=== PATIENT | female | born 1975 | race Caucasian/White ===

== ENCOUNTER 2018-08-01 12:29 | Emergency (ER) | payer MEDICAID ==
[~2018-08-01] VITALS: Ht 165.1 cm; Wt 91.8 kg
[2018-08-01 12:35] VITALS: TEMP 98
[2018-08-01] MEDS ORDERED: HCTZ12.5TAB PO (12:42)
[2018-08-01] MEDS ORDERED: NORCO 325 MG-51 TAB PO (12:42)
[2018-08-01] MEDS ORDERED: BUSPAR DIVIDOSE15 MG PO (12:43)
[2018-08-01 13:25] LABS: BASO # 0.1 (0.0-0.2); BASO % 0.5 % (0.0-2.0); EOS # 0.5 (0.0-0.7); EOS % 4.4 % (0-4.0); GRAN # 8.1 (1.4-6.5); GRAN % 73.6 % (42.2-75.2); HEMATOCRIT 42.2 % (37.0-47.0); LYMPH # 1.7 (1.2-3.4); LYMPH % 15.4 % (20.0-51.0); MEAN CELL VOLUME 90 fl (80.0-100.0); MEAN CORPUSCULAR HEMOGLOBIN 32 pg (27.0-31.0); MEAN CORPUSCULAR HGB CONC 36 g/dl (33.0-37.0); MEAN PLATELET VOLUME 10.2 fl (7.4-10.4); MONO # 0.6 (0.1-0.6); MONO % 5.6 % (1.7-9.3); PLATELET COUNT 188 K/mm3 (130-400); RED BLOOD COUNT 4.69 M/mm3 (4.10-5.30); REDCELL DISTRIBUTION WIDTH-CV 12.3 % (11.5-14.5)
[2018-08-01 13:28] LABS: PROTHROMBIN TIME 11.7 SECONDS (9.7-12.8)
[2018-08-01 13:30] LABS: PARTIAL THROMBOPLASTIN TIME 36.3 SECONDS (26.0-37.0)
[2018-08-01 13:34] LABS: ALANINE AMINOTRANSFERASE 23 U/L (9-52); ALBUMIN 4.4 gm/dL (3.5-5.0); ALKALINE PHOSPHATASE 65 U/L (50-136); ANION GAP 8 mmol/L (7-16); AST,SGOT 18 U/L (15-37); BILIRUBIN,TOTAL 0.8 mg/dL (0.0-1.0); BLOOD UREA NITROGEN 7 mg/dL (7-17); CALCIUM 9.2 mg/dL (8.4-10.2); CARBON DIOXIDE 30 mmol/L (22-30); CHLORIDE 102 mmol/L (98-107); CREATININE, serum 0.76 mg/dL (0.52-1.25); GLUCOSE 94 mg/dL (74-106); POTASSIUM 3.5 mmol/L (3.4-5.0); SODIUM 139 mmol/L (137-145)
[2018-08-01 14:01] LABS: TROPONIN-I < 0.012 ng/mL (0.000-0.034)
[2018-08-01 15:39] VITALS: BP 124/70; PULSE 72
== END 2018-08-01 15:41 | disposition home or self-care (01) ==
LOC: COL.ER 12:29
PROVIDERS: Family Medicine
DX: R07.89 Other chest pain (principal); F17.210 Nicotine dependence, cigarettes, uncomplicated
CPT/HCPCS: J1885

== ENCOUNTER → 2018-10-14 | Outpatient (CLI) | payer MEDICAID ==
[~2018-10-14] MED LIST: BUSPAR DIVIDOSE15 MG PO; FASTIN30 MG PO; HCTZ12.5TAB PO; NORCO 325 MG-51 TAB PO; PROTONIX 40MG T40 MG PO; PROTONIX20 MG PO
== END ==
LOC: ZCOL.LAB 17:00
DX: R07.9 Chest pain, unspecified (principal)

== ENCOUNTER → 2018-11-04 | Outpatient (CLI) | payer MEDICAID | LOC: COL.RAD 11:03 | DX: R10.2 Pelvic and perineal pain (principal); Z90.710 Acquired absence of both cervix and uterus ==

== ENCOUNTER → 2018-11-04 | Outpatient (CLI) | payer MEDICAID ==
[2018-11-04 17:32] LABS: MUCOUS Present /lpf; PH 6 (5-8); URINE APPEARANCE Hazy; URINE BACTERIA None Seen /hpf; URINE BILIRUBIN Negative (NEGATIVE); URINE BLOOD 1+ (NEGATIVE); URINE COLOR Yellow; URINE GLUCOSE Negative (NEGATIVE); URINE KETONE Negative (NEGATIVE); URINE LEUKOCYTE ESTERASE Negative (NEGATIVE); URINE NITRATE Negative (NEGATIVE); URINE PROTEIN(semi-quant) Negative (NEGATIVE); URINE UROBILINOGEN Negative (NEGATIVE)
[2018-11-04 17:44] LABS: COLLECTION METHOD CLEAN CATCH
== END ==
LOC: ZCOL.LAB 16:27
PROVIDERS: Family Medicine
DX: R10.2 Pelvic and perineal pain (principal)

== ENCOUNTER → 2018-11-11 | Outpatient (CLI) | payer MEDICAID ==
[~2018-11-11] MED LIST changes: +CARAFATE 1GM1 G PO; +ZOLOFT 50MG50 MG PO
[2018-11-11 12:58] LABS: BASO # 0.1 (0.0-0.2); BASO % 0.6 % (0.0-2.0); EOS # 0.1 (0.0-0.7); GRAN # 7.4 (1.4-6.5); GRAN % 74.9 % (42.2-75.2); HEMATOCRIT 38.7 % (37.0-47.0); LYMPH # 1.7 (1.2-3.4); LYMPH % 17.5 % (20.0-51.0); MEAN CELL VOLUME 89 fl (80.0-100.0); MEAN CORPUSCULAR HEMOGLOBIN 32 pg (27.0-31.0); MEAN CORPUSCULAR HGB CONC 36 g/dl (33.0-37.0); MEAN PLATELET VOLUME 10.5 fl (7.4-10.4); MONO # 0.6 (0.1-0.6); MONO % 5.7 % (1.7-9.3); PLATELET COUNT 141 K/mm3 (130-400); RED BLOOD COUNT 4.36 M/mm3 (4.10-5.30); REDCELL DISTRIBUTION WIDTH-CV 12.2 % (11.5-14.5)
[2018-11-11 13:08] LABS: ALBUMIN 3.9 gm/dL (3.5-5.0); CREATININE, serum 0.92 mg/dL (0.52-1.25); TOTAL PROTEIN 6.9 gm/dL (6.4-8.2)
[2018-11-11 13:17] LABS: POTASSIUM 2.8 mmol/L (3.4-5.0)
== END ==
LOC: COL.LAB 12:24
PROVIDERS: Physician Assistant
DX: M54.9 Dorsalgia, unspecified (principal); R10.9 Unspecified abdominal pain; R07.9 Chest pain, unspecified; R41.0 Disorientation, unspecified; R05 Cough; R19.7 Diarrhea, unspecified; R12 Heartburn; R11.2 Nausea with vomiting, unspecified; R06.02 Shortness of breath; R06.2 Wheezing

== ENCOUNTER 2018-11-12 10:28 | Day surgery (SDC) | payer MEDICAID ==
[2018-11-12] VITALS (7 sets, daily range): BP systolic 97–128; BP diastolic 37–74; PULSE 52–74; TEMP 98.3
[~2018-11-12] VITALS: Ht 165.1 cm; Wt 82.7 kg
[~2018-11-12 10:28] MED LIST changes: -CARAFATE 1GM1 G PO; -ZOLOFT 50MG50 MG PO
[2018-11-12] MEDS ORDERED: ZOLOFT 50MG50 MG PO (10:54)
[2018-11-12] MEDS ORDERED: CARAFATE 1GM1 G PO (10:54)
--- NOTE | 2018-11-12 11:16 | NUR ---
The nurse spoke with the patient regarding her responses to the suicide risk assessment. She states that she started taking Zoloft 50mg about 1 month ago and was placed on this medication by her primary care Dr. Grubbs. She also states that she has "people in place" that she "can call and talk to" when she is "feeling down".
--- NOTE | 2018-11-12 11:20 | NUR ---
Dr. Schilling was notified of the patient's yes responses on the suicide risk assessment. He verbalized understanding of the report given and will proceed with the procedure as scheduled.
--- NOTE | 2018-11-12 13:10 | NUR ---
PT TO BAY 2 VIA CART FROM ENDO ROOM, WALKED TO CHAIR, FRIEND IN ROOM, CALL LIGHT IN REACH, NO C/O
--- NOTE | 2018-11-12 13:25 | NUR ---
PT AWAKE, TEARFUL, STATES WANTING TO KNOW WHAT IS WRONG, ECT. SIPS ON WATER, FRIEND IN ROOM
--- NOTE | 2018-11-12 13:40 | NUR ---
DR QUIJANO INTO SEE PT AND FRIEND THAT IS IN ROOM
--- NOTE | 2018-11-12 14:10 | NUR ---
iv d'cd intact, pt assisted with dressing. Reviewed discharge inst. with pt on both procedures and precautions, handouts given on IBS polyp removal. pt states Dr Schilling came in room, and was going to call in script for nausea at her pharmacy. Pt discharged via w/c to car wtih friend at 1430
== END 2018-11-12 14:30 | disposition home or self-care (01) ==
LOC: SDCO 10:28
DX: D12.8 Benign neoplasm of rectum (principal); K92.1 Melena; R19.7 Diarrhea, unspecified; K21.9 Gastro-esophageal reflux disease without esophagitis; K63.89 Other specified diseases of intestine; F41.9 Anxiety disorder, unspecified; F32.9 Major depressive disorder, single episode, unspecified; K92.0 Hematemesis; F17.210 Nicotine dependence, cigarettes, uncomplicated
CPT/HCPCS: J2250; J3010; J7030

== ENCOUNTER → 2018-11-16 | Outpatient (CLI) | payer MEDICAID ==
[~2018-11-16] MED LIST changes: +CARAFATE 1GM1 G PO; +ZOLOFT 50MG50 MG PO
== END ==
LOC: COL.RAD 15:00
DX: K80.20 Calculus of gallbladder without cholecystitis without obstruction (principal); N28.1 Cyst of kidney, acquired; Z90.710 Acquired absence of both cervix and uterus
CPT/HCPCS: Q9967

== ENCOUNTER → 2018-11-23 | Outpatient (CLI) | payer MEDICAID | LOC: COL.RAD 06:38 | DX: R10.13 Epigastric pain (principal); R11.2 Nausea with vomiting, unspecified; R19.7 Diarrhea, unspecified | CPT/HCPCS: A9541 ==

== ENCOUNTER → 2018-11-26 | Outpatient (CLI) | payer MEDICAID | LOC: COL.RAD 08:15 | DX: K80.20 Calculus of gallbladder without cholecystitis without obstruction (principal) ==

== ENCOUNTER 2018-12-04 22:15 | Emergency (ER) | payer MEDICAID ==
[~2018-12-04] VITALS: Ht 165.1 cm; Wt 80.0 kg
[2018-12-04 22:17] VITALS: TEMP 98.8
[2018-12-04] MEDS ORDERED: ZOFRAN ODT4 MG PO (22:27)
[2018-12-04] MEDS ORDERED: NITROSTAT0.4 MG/TAB SL (22:28)
[2018-12-04] MEDS ORDERED: NORCO 325 MG-51 TAB PO (22:29)
[2018-12-04] MEDS ORDERED: KLOR-CON 1010 MEQ PO (22:30)
[2018-12-04] MEDS ORDERED: ASPIRIN 81M81 MG/TA2 PO (22:32)
[2018-12-04] MEDS ORDERED: AMOXICILLIN 50500 MG PO (22:33)
[2018-12-04 22:43] LABS: BASO # 0.1 (0.0-0.2); BASO % 0.5 % (0.0-2.0); EOS # 0.3 (0.0-0.7); EOS % 1.9 % (0-4.0); GRAN # 9.1 (1.4-6.5); GRAN % 66.2 % (42.2-75.2); LYMPH # 3.4 (1.2-3.4); LYMPH % 24.7 % (20.0-51.0); MEAN CELL VOLUME 90 fl (80.0-100.0); MEAN CORPUSCULAR HEMOGLOBIN 32 pg (27.0-31.0); MEAN CORPUSCULAR HGB CONC 35 g/dl (33.0-37.0); MEAN PLATELET VOLUME 10.2 fl (7.4-10.4); MONO # 0.8 (0.1-0.6); PLATELET COUNT 187 K/mm3 (130-400); RED BLOOD COUNT 4.44 M/mm3 (4.10-5.30); REDCELL DISTRIBUTION WIDTH-CV 12.2 % (11.5-14.5)
[2018-12-04 22:46] LABS: PROTHROMBIN TIME 11.8 SECONDS (9.7-12.8)
[2018-12-04 22:50] LABS: D-DIMER < 200.00 ng/mLDDu (200-230)
[2018-12-04 22:51] LABS: ALANINE AMINOTRANSFERASE 16 U/L (9-52); ALBUMIN 3.6 gm/dL (3.5-5.0); ALKALINE PHOSPHATASE 51 U/L (50-136); ANION GAP 6 mmol/L (7-16); AST,SGOT 15 U/L (15-37); BILIRUBIN,TOTAL 0.4 mg/dL (0.0-1.0); BLOOD UREA NITROGEN 10 mg/dL (7-17); CALCIUM 8.5 mg/dL (8.4-10.2); CARBON DIOXIDE 25 mmol/L (22-30); CHLORIDE 107 mmol/L (98-107); CREATININE, serum 0.84 mg/dL (0.52-1.25); GLUCOSE 87 mg/dL (74-106); LIPASE 154 U/L (23-300); POTASSIUM 3.3 mmol/L (3.4-5.0); SODIUM 138 mmol/L (137-145); TOTAL PROTEIN 6.6 gm/dL (6.4-8.2)
[2018-12-04 23:15] LABS: TROPONIN-I < 0.012 ng/mL (0.000-0.035)
[2018-12-05 02:47] VITALS: BP 103/68; PULSE 55
== END 2018-12-05 02:49 | disposition home or self-care (01) ==
LOC: COL.ER 22:15
PROVIDERS: Emergency Medicine
DX: R07.89 Other chest pain (principal); K21.9 Gastro-esophageal reflux disease without esophagitis; I10 Essential (primary) hypertension; F17.210 Nicotine dependence, cigarettes, uncomplicated; Z90.710 Acquired absence of both cervix and uterus; Z98.51 Tubal ligation status; Z79.82 Long term (current) use of aspirin

== ENCOUNTER 2018-12-09 07:08 | Day surgery (SDC) | payer MEDICAID ==
[~2018-12-09] VITALS: Ht 165.1 cm; Wt 84.5 kg
[2018-12-09] VITALS (11 sets, daily range): BP systolic 87–122; BP diastolic 34–68; PULSE 51–81; TEMP 97.8
[~2018-12-09 07:08] MED LIST changes: +AMOXICILLIN 50500 MG PO; +ASPIRIN 81M81 MG/TA2 PO; +KLOR-CON 1010 MEQ PO; +NITROSTAT0.4 MG/TAB SL; +ZOFRAN ODT4 MG PO
[2018-12-09 07:41] LABS: HEMATOCRIT 39.1 % (37.0-47.0); HEMOGLOBIN 13.8 g/dl (12.5-16.0); MEAN CELL VOLUME 90 fl (80.0-100.0); MEAN CORPUSCULAR HEMOGLOBIN 32 pg (27.0-31.0); MEAN CORPUSCULAR HGB CONC 35 g/dl (33.0-37.0); MEAN PLATELET VOLUME 9.9 fl (7.4-10.4); PLATELET COUNT 182 K/mm3 (130-400); RED BLOOD COUNT 4.36 M/mm3 (4.10-5.30); REDCELL DISTRIBUTION WIDTH-CV 12.5 % (11.5-14.5)
[2018-12-09 07:51] LABS: CALCIUM 8.6 mg/dL (8.4-10.2); CREATININE, serum 0.82 mg/dL (0.52-1.25); POTASSIUM 3.1 mmol/L (3.4-5.0)
[2018-12-09 08:05] LABS: INR 1.1 (0.8-3.0); PROTHROMBIN TIME 12.1 SECONDS (9.7-12.8)
--- NOTE | 2018-12-09 09:09 | NUR ---
Pt to procedure,report to PIYUSH Quiroz.
--- NOTE | 2018-12-09 09:25 | NUR ---
ALL SEDATION MEDICATIONS WILL BE GIVEN DURING PROCEDURE WITH VERBAL ORDER FROM MD ROBERSON. SEE MERGE FRO ADMIN TIMES. SEE MERGE FOR RASS MODERATE SEDATION ASSESSMENTS DURING AND AFTER PROCEDURE. POSITIVE ALLENS TEST.
[2018-12-09] MEDS ORDERED: CELEBREX 200MG200 MG PO (10:07)
[2018-12-09] MEDS ORDERED: NORVASC2.5 MG PO (10:07)
--- NOTE | 2018-12-09 14:10 | NUR ---
Discharge instructions given to pt.pt verbalizes understanding.INT removed,catheter tip intact.Pt escorted out via wheelchair by this nurse.
== END 2018-12-09 14:12 | disposition home or self-care (01) ==
LOC: COL.CAR 07:08
PROVIDERS: Internal Medicine Cardiovascular Disease
DX: I20.0 Unstable angina (principal); K21.9 Gastro-esophageal reflux disease without esophagitis; R60.0 Localized edema; Z98.51 Tubal ligation status; Z79.899 Other long term (current) drug therapy; F17.210 Nicotine dependence, cigarettes, uncomplicated; G89.29 Other chronic pain
CPT/HCPCS: J1200; J1644; J2250; J3010; Q9967

== ENCOUNTER 2019-01-04 12:15 | Day surgery (SDC) | payer MEDICAID ==
[~2019-01-04] VITALS: Ht 165.1 cm; Wt 82.2 kg
[2019-01-04] VITALS (8 sets, daily range): BP systolic 82–116; BP diastolic 44–59; PULSE 49–63; TEMP 97.7–98.3
[~2019-01-04 12:15] MED LIST changes: +CELEBREX 200MG200 MG PO; +NORVASC2.5 MG PO
[2019-01-04] MEDS ORDERED: PROTONIX 40MG T40 MG PO (12:40)
[2019-01-04] MEDS ORDERED: HCTZ12.5TAB PO (12:41)
--- NOTE | 2019-01-04 16:55 | NUR ---
PATIENT BACK FROM PACU AFTER LAP [employer]. PATIENT HAS FOUR INCISIONS SITES, COVERED WITH BANDAIDS. BANDAIDS CLEAN DRY AND INTACT. PATIENT APPEARS VERY DROWSY, WILL CONTINUE TO MONITOR.
--- NOTE | 2019-01-04 17:05 | NUR ---
PATIENT AMBULATED TO BATHROOM WITH ASSISTANCE, URINATED WITHOUT DIFFICULTY. PATIENT AMBULATED BACK TO ROOM, FELL ASLEEP SOON SHE WAS BACK ON CART. WILL CONTINUE TO MONITOR.
--- NOTE | 2019-01-04 17:15 | NUR ---
PATIENT APPEARS TO BE SLEEPING. PATIENT BP SLIGHTLY HIGHER NOW. WILL CONTINUE TO MONITOR.
--- NOTE | 2019-01-04 17:30 | NUR ---
PATIENT'S MOTHER IN LAW AT BEDSIDE. PATIENT COMPLAINING OF SOME DISCOMFORT, EDUCATED PATIENT ON IMPORTANCE OF PASSING GAS. PATIENT STATES THAT SHE IS AFRAID TO. WILL GIVE ZOFRAN FOR COMPLAINT OF SOME NAUSEA. VS APPEAR STABLE. PATIENT HAS DRANK DR. STARK.
--- NOTE | 2019-01-04 17:45 | NUR ---
PATIENT CRYING OUT IN PAIN, GAVE ONE NORCO PILL. PATIENT'S MOTHER -IN-LAW IS AT BEDSIDE, COMFORTING PATIENT. WILL CONTINUE TO MONITOR. WILL ENCOURAGE PATIENT TO EAT.
--- NOTE | 2019-01-04 18:00 | NUR ---
PATIENT WANTING TO TRY SOME JELLO. PATIENT VS SIGNS APPEAR STABLE. WILL DISCHARGE PATIENT IF PATIENT IS ABLE TO EAT JELLO.
--- NOTE | 2019-01-04 18:15 | NUR ---
PATIENT ATE JELLO, NO COMPLAINTS, WILL DISCHARGE PATIENT.
== END 2019-01-04 18:40 | disposition home or self-care (01) ==
LOC: SDCO 12:15
DX: K80.10 Calculus of gallbladder with chronic cholecystitis without obstruction (principal); Z79.899 Other long term (current) drug therapy; Z98.51 Tubal ligation status; Z90.710 Acquired absence of both cervix and uterus; I10 Essential (primary) hypertension; F41.9 Anxiety disorder, unspecified; F17.210 Nicotine dependence, cigarettes, uncomplicated; R07.9 Chest pain, unspecified; K21.9 Gastro-esophageal reflux disease without esophagitis; R60.9 Edema, unspecified; Z81.8 Family history of other mental and behavioral disorders; Z83.3 Family history of diabetes mellitus; Z82.0 Family history of epilepsy and other diseases of the nervous system; Z84.89 Family history of other specified conditions; Z82.3 Family history of stroke
CPT/HCPCS: J0690; J1100; J2405; J2704; J3010; J7120

== ENCOUNTER 2019-06-03 13:28 | Emergency (ER) | payer MEDICAID ==
[~2019-06-03] VITALS: Ht 165.1 cm; Wt 79.5 kg
[2019-06-03 14:25] LABS: BASO # 0.1 (0.0-0.2); BASO % 0.7 % (0.0-2.0); EOS # 0.2 (0.0-0.7); EOS % 2.6 % (0-4.0); GRAN # 6.4 (1.4-6.5); GRAN % 70.3 % (42.2-75.2); HEMATOCRIT 39.2 % (37.0-47.0); HEMOGLOBIN 13.9 g/dl (12.5-16.0); LYMPH % 21.5 % (20.0-51.0); MEAN CELL VOLUME 90 fl (80.0-100.0); MEAN CORPUSCULAR HEMOGLOBIN 32 pg (27.0-31.0); MEAN CORPUSCULAR HGB CONC 36 g/dl (33.0-37.0); MEAN PLATELET VOLUME 10.2 fl (7.4-10.4); MONO # 0.4 (0.1-0.6); MONO % 4.6 % (1.7-9.3); PLATELET COUNT 147 K/mm3 (130-400); RED BLOOD COUNT 4.38 M/mm3 (4.10-5.30)
[2019-06-03 14:42] LABS: ALANINE AMINOTRANSFERASE 7 U/L (9-52); ALBUMIN 3.7 gm/dL (3.5-5.0); ALKALINE PHOSPHATASE 59 U/L (50-136); ANION GAP 8 mmol/L (7-16); AST,SGOT 18 U/L (15-37); BILIRUBIN,TOTAL 0.6 mg/dL (0.0-1.0); BLOOD UREA NITROGEN 7 mg/dL (7-17); CALCIUM 8.7 mg/dL (8.4-10.2); CARBON DIOXIDE 27 mmol/L (22-30); CHLORIDE 105 mmol/L (98-107); CREATININE, serum 0.91 (0.52-1.25); GLUCOSE 83 mg/dL (74-106); LIPASE 87 U/L (23-300); POTASSIUM 3.5 mmol/L (3.4-5.0); SODIUM 140 mmol/L (137-145); TOTAL PROTEIN 6.7 gm/dL (6.4-8.2)
[2019-06-03 14:54] LABS: TROPONIN-I < 0.012 ng/mL (0.000-0.035)
[2019-06-03 14:58] LABS: INR 0.9 (0.8-3.0); PROTHROMBIN TIME 10.4 SECONDS (9.7-12.8)
[2019-06-03 15:11] LABS: D-DIMER < 200.00 ng/mLDDu (200-230)
[2019-06-03 16:05] VITALS: BP 111/76; PULSE 62; TEMP 97.8
== END 2019-06-03 16:05 | disposition home or self-care (01) ==
LOC: COL.ER 13:28
PROVIDERS: Emergency Medicine
DX: R07.89 Other chest pain (principal); F17.210 Nicotine dependence, cigarettes, uncomplicated; K21.9 Gastro-esophageal reflux disease without esophagitis; Z95.9 Presence of cardiac and vascular implant and graft, unspecified; Z90.49 Acquired absence of other specified parts of digestive tract; Z90.710 Acquired absence of both cervix and uterus
CPT/HCPCS: J7030

== ENCOUNTER → 2019-06-07 | Outpatient (CLI) | payer MEDICAID ==
[2019-06-07 18:40] LABS: COLLECTION METHOD CLEAN CATCH
[2019-06-07 18:51] LABS: PH 6 (5-8); SQUAMOUS EPITHELIAL 0-2 /hpf; URINE APPEARANCE Clear; URINE BACTERIA Rare /hpf; URINE BILIRUBIN Negative (NEGATIVE); URINE BLOOD 1+ (NEGATIVE); URINE COLOR Yellow; URINE GLUCOSE Negative (NEGATIVE); URINE KETONE Negative (NEGATIVE); URINE LEUKOCYTE ESTERASE Negative (NEGATIVE); URINE NITRATE Negative (NEGATIVE); URINE PROTEIN(semi-quant) Negative (NEGATIVE); URINE RBC 0-2 /hpf; URINE UROBILINOGEN Negative (NEGATIVE); URINE WBC 0-2 /hpf
== END ==
LOC: ZCOL.LAB 17:15
PROVIDERS: Family Medicine
DX: N39.41 Urge incontinence (principal)

== ENCOUNTER → 2019-07-08 | Outpatient (CLI) | payer MEDICAID ==
[2019-07-08 18:22] LABS: MUCOUS Present /lpf; PH 6 (5-8); URINE APPEARANCE Clear; URINE BACTERIA None Seen /hpf; URINE BILIRUBIN Negative (NEGATIVE); URINE BLOOD 1+ (NEGATIVE); URINE COLOR Yellow; URINE GLUCOSE Negative (NEGATIVE); URINE KETONE Negative (NEGATIVE); URINE LEUKOCYTE ESTERASE Negative (NEGATIVE); URINE NITRATE Negative (NEGATIVE); URINE PROTEIN(semi-quant) Negative (NEGATIVE); URINE UROBILINOGEN Negative (NEGATIVE); URINE WBC 0-2 /hpf
[2019-07-08 18:44] LABS: COLLECTION METHOD CLEAN CATCH
== END ==
LOC: COL.LAB 18:00
PROVIDERS: Family Medicine
DX: R35.8 Other polyuria (principal)

== ENCOUNTER → 2019-09-27 | Outpatient (CLI) | payer MEDICAID ==
[2019-09-27 17:45] LABS: CALCIUM 9.4 mg/dL (8.4-10.2); CREATININE, serum 1.1 (0.52-1.25); POTASSIUM 4.2 mmol/L (3.4-5.0)
== END ==
LOC: ZCOL.LAB 16:26
PROVIDERS: Family Medicine
DX: R20.2 Paresthesia of skin (principal)

== ENCOUNTER → 2019-10-18 | Outpatient (CLI) | payer MEDICAID | LOC: COL.RAD 08:00 | DX: G43.909 Migraine, unspecified, not intractable, without status migrainosus (principal); R20.2 Paresthesia of skin | CPT/HCPCS: A9585 ==

== ENCOUNTER → 2020-10-01 | Outpatient (CLI) | payer MEDICAID ==
[~2020-10-01] MED LIST changes: +DITROPAN XL10 MG PO; +HCTZ 25MG TAB25 MG PO; +IMITREX 25MG TA25 MG PO; +MAG-OX 400400 MG/TAB PO; +VESICARE10 MG PO
== END ==
LOC: MC.RAD 09-21 08:00
DX: N63.11 Unspecified lump in the right breast, upper outer quadrant (principal)

== ENCOUNTER 2021-02-24 11:20 | Emergency (ER) | payer MEDICAID ==
[~2021-02-24] VITALS: Ht 165.1 cm; Wt 77.3 kg
[2021-02-24 11:36] VITALS: BP 137/64; TEMP 98.7
[2021-02-24] MEDS ORDERED: AMOXICILLIN 8751 TAB PO (11:52)
[2021-02-24 12:46] VITALS: PULSE 73
== END 2021-02-24 12:46 | disposition home or self-care (01) ==
LOC: COL.ER 11:20
DX: S61.451A Open bite of right hand, initial encounter (principal); F41.9 Anxiety disorder, unspecified; F17.210 Nicotine dependence, cigarettes, uncomplicated; Z79.82 Long term (current) use of aspirin; W54.0XXA Bitten by dog, initial encounter

== ENCOUNTER → 2021-04-12 | Outpatient (CLI) | payer MEDICAID ==
[~2021-04-12] MED LIST changes: +AMOXICILLIN 8751 TAB PO
== END ==
LOC: COL.RAD 07:56
DX: M19.011 Primary osteoarthritis, right shoulder (principal)

== ENCOUNTER 2021-10-20 16:13 | Emergency (ER) | payer MEDICAID ==
[~2021-10-20] VITALS: Ht 165.1 cm; Wt 91.8 kg
[2021-10-20] MEDS ORDERED: PREDNISONE20 MG PO (20:11)
[2021-10-20 20:32] VITALS: BP 125/63; PULSE 78; TEMP 98.5
== END 2021-10-20 20:32 | disposition home or self-care (01) ==
LOC: COL.ER 16:13
DX: J20.9 Acute bronchitis, unspecified (principal); H61.22 Impacted cerumen, left ear; J45.909 Unspecified asthma, uncomplicated; I10 Essential (primary) hypertension; K21.9 Gastro-esophageal reflux disease without esophagitis; F32.A Depression, unspecified; F17.210 Nicotine dependence, cigarettes, uncomplicated; Z79.899 Other long term (current) drug therapy; Z20.822 Contact with and (suspected) exposure to COVID-19
CPT/HCPCS: J7512